=== PATIENT | female | born 1965 | race Two or more races ===

== ENCOUNTER 2024-11-09 17:42 | Emergency (ER) | payer MEDICAID, SELFPAY ==
[2024-11-09 18:05] VITALS: PULSE 98; RESP 20; O2SAT 99; BMI 29.2
--- NOTE | 2024-11-09 18:12 | PC.NURSE ---
[facility] LOG [id number].
[2024-11-09 18:23] VITALS: BP 149/77; PULSE 84; RESP 18; TEMP 36.6
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
--- NOTE | 2024-11-09 18:31 | EKG_ITS ---
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
[2024-11-09] MEDS: HYDROcodone/APAP 5/325 TABLET 1 TAB PO (18:43)
[2024-11-09] MEDS: KETOROLAC INJ 60 MG/2 ML VIAL 30 MG IM (20:47)
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
== END 2024-11-09 22:45 | disposition home or self-care (01) ==
PROVIDERS: Emergency Provider Emergency Medicine; PCP Physician Assistant
DX: S22.22XA Fracture of body of sternum, initial encounter for closed fracture (principal); S42.001A Fracture of unspecified part of right clavicle, initial encounter for closed fracture; V89.2XXA Person injured in unspecified motor-vehicle accident, traffic, initial encounter
CPT/HCPCS: 71250; 74150; 96372; 99284; J1885; A9270

== ENCOUNTER → 2025-01-08 | Outpatient (CLI) | payer MEDICAID, SELFPAY ==
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
== END | disposition home or self-care (01) ==
PROVIDERS: PCP Physician Assistant; Referring Provider Orthopaedic Surgery; Visit Provider Orthopaedic Surgery
DX: M75.101 Unspecified rotator cuff tear or rupture of right shoulder, not specified as traumatic (principal); M25.811 Other specified joint disorders, right shoulder
CPT/HCPCS: 73221

== ENCOUNTER → 2025-06-16 | Outpatient (CLI) | payer MEDICAID, SELFPAY ==
--- NOTE | 2025-06-16 10:00 | XR_ITS ---
Examination: Screening digital mammography, bilateral Computer aided detection 3-D breast Tomosynthesis, bilateral Date and time of exam: June 16, 2025 1026 hours Compared to mammograms dating to September 25, 2016 Indication: Screening Technique: Nonmagnified MLO, CC views of the breasts to been obtained, reconstructed from 3-D Tomosynthesis images. R2 computer aided detection program utilized for evaluation of suspicious masses and/or abnormal calcifications. 3-D Tomosynthesis images obtained. Findings: Scattered areas of fibroglandular density. Benign calcifications. No interval suspicious masses Impression: BI-RADS category II: Benign Findings. Recommend 1 year follow-up mammogram.
== END | disposition home or self-care (01) ==
LOC: CDIM 10:08
PROVIDERS: PCP Physician Assistant; Referring Provider Physician Assistant; Visit Provider Physician Assistant
DX: Z12.31 Encounter for screening mammogram for malignant neoplasm of breast (principal); R92.323 Mammographic fibroglandular density, bilateral breasts; R92.1 Mammographic calcification found on diagnostic imaging of breast
CPT/HCPCS: 77063; 77067